=== PATIENT | male | born 1945 | race Two or more races ===

== ENCOUNTER 2020-03-24 12:07 | Emergency (ER) | payer OTHER ==
[~2020-03-24] VITALS: Ht 172.7 cm; Wt 84.4 kg
[2020-03-24] MEDS ORDERED: ADULT LOW DOSE81 M1 (12:38)
== END 2020-03-24 19:58 | disposition home or self-care (01) ==
LOC: ER 12:07 → CPU-OBS 12:35 → ER 19:58
DX: G51.0 Bell's palsy (principal); I16.0 Hypertensive urgency; I10 Essential (primary) hypertension; Z03.818 Encounter for observation for suspected exposure to other biological agents ruled out; R07.89 Other chest pain

== ENCOUNTER 2020-04-09 07:34 | Outpatient (CLI) | payer OTHER ==
[~2020-04-09 07:34] MED LIST: ADULT LOW DOSE81 M1
== END 2020-04-09 07:47 | disposition home or self-care (01) ==
LOC: MRI 07:34
PROVIDERS: ATTEND Psychiatry & Neurology Clinical Neurophysiology
DX: G51.0 Bell's palsy (principal); H70.892 Other mastoiditis and related conditions, left ear
CPT/HCPCS: 70552